=== PATIENT | female | born 1950 | race Caucasian/White ===

== ENCOUNTER 2021-04-13 06:44 | Inpatient (IN) | payer BC, OTHER ==
[2021-04-06 19:16] VITALS: BMI 32.5
[2021-04-13] MEDS ORDERED: ceFAZolin SODIUM 1 GM VIAL ONE ×2 (07:34→09:32)
[2021-04-13] MEDS ORDERED: VANCOMYCIN 1,000 MG VIAL (RESTRICTED TO ID ONLY) ONE ×2 (07:35→10:59)
[2021-04-13] MEDS ORDERED: THROMBIN (BOVINE) 5,000 UNIT VIAL TP ONE (07:36)
[2021-04-13] MEDS ORDERED: CELECOXIB 200 MG CAPSULE PO ONE (08:00)
[2021-04-13] MEDS ORDERED: CEFAZOLIN 2 GM in DEXTROSE 5%-WATER - 50 ML IVPB ONE (08:00)
[2021-04-13] MEDS ORDERED: TRANEXAMIC ACID 1000 MG/10 ML VIAL IVPUSH ONE (08:00)
[2021-04-13] MEDS ORDERED: MIDAZOLAM HCL 2 MG/2 ML SINGLE DOSE VIAL ONE ×3 (08:39→10:57)
[2021-04-13] MEDS ORDERED: BUPIVACAINE LIPOSOME/PF (EXPAREL) 266 MG/20 ML VIAL ONE (08:39)
[2021-04-13] MEDS ORDERED: SODIUM CHLORIDE 0.9% P/F 10 ML VIAL IJ ONE (08:39)
[2021-04-13] MEDS ORDERED: BUPIVACAINE HCL 50 ML ONE ×2 (08:39→08:47)
[2021-04-13] MEDS ORDERED: ONDANSETRON 4 MG/2 ML VIAL IVPUSH PRN (09:31)
[2021-04-13] MEDS ORDERED: MAGNESIUM HYDROX 2400MG/30ML ORAL SUSPENSION 30 ML CUP PO PRN (09:31)
[2021-04-13] MEDS ORDERED: MAG HYDROX/AL HYDROX/SIMETH 30 ML UNIT-DOSE CUP PO PRN (09:31)
[2021-04-13] MEDS ORDERED: TRANEXAMIC ACID 1000 MG/10 ML VIAL ONE ×2 (09:32→10:50)
[2021-04-13] MEDS ORDERED: DEXAMETHASONE SOD PHOSPHATE 4 MG/1 ML VIAL ONE (09:32)
[2021-04-13] MEDS ORDERED: LACTATED RINGERS SOLUTION 1,000 ML IV SCH (09:45)
[2021-04-13] MEDS ORDERED: PROPOFOL 20 ML ONE ×2 (09:46)
[2021-04-13] MEDS ORDERED: SUCCINYLCHOLINE CHLORIDE 200 MG/10 ML SYRINGE ONE (09:47)
[2021-04-13] MEDS ORDERED: PHENYLEPHRINE HCL 10 MG/1 ML SINGLE DOSE VIAL ONE (10:58)
[2021-04-13] MEDS: ACETAMINOPHEN 325 MG TABLET (FP) PO SCH ×2 (12:05→18:33)
[2021-04-13] MEDS ORDERED: ACETAMINOPHEN 325 MG TABLET (FP) ONE (12:12)
[2021-04-13] MEDS: QUINAPRIL HCL 20 MG TABLET PO SCH (12:48)
[2021-04-13] MEDS: FOLIC ACID 1 MG TABLET (FP) PO SCH (12:48)
[2021-04-13] MEDS: HYDROCHLOROTHIAZIDE 12.5 MG CAPSULE (FP) PO SCH (12:49)
[2021-04-13] MEDS: SENNOSIDES/DOCUSATE COMBO (SENNA PLUS) TABLET (UD) PO SCH ×2 (12:49→21:13)
[2021-04-13] MEDS: MULTIVITAMINS (DAILY MVI) TABLET (FP) PO SCH (12:49)
[2021-04-13] MEDS: PANTOPRAZOLE 40 MG TABLET PO SCH (12:49)
[2021-04-13] MEDS: oxyCODONE HCL 5 MG TABLET PO PRN ×2 (16:44→21:14)
[2021-04-13] MEDS: CEFAZOLIN 2 GM/D5W 2 GM/50 ML ML IVPB SCH (18:33)
[2021-04-13] MEDS: oxyCODONE HCL 10 MG SUSTAINED ACTING TABLET PO SCH (21:13)
[2021-04-14] MEDS: CEFAZOLIN 2 GM/D5W 2 GM/50 ML ML IVPB SCH (02:40)
[2021-04-14] MEDS: oxyCODONE HCL 5 MG TABLET PO PRN ×3 (04:00→19:56)
[2021-04-14] MEDS: ACETAMINOPHEN 325 MG TABLET (FP) PO SCH ×4 (06:01→17:29)
[2021-04-14 07:57] LABS: HEMATOCRIT 37.9 % (32.4-45.2); HEMOGLOBIN 12.6 GM/dl (10.7-15.3); MCH 30.5 pg (25.7-33.7); MCHC 33.4 g/dl (32.0-36.0); MEAN CELL VOLUME 91.4 fl (80-96); MEAN PLT VOLUME 8.6 fl (7.5-11.1); PLATELET COUNT 280 10^3/uL (134-434); RBC 4.14 M/mm3 (3.60-5.2); RDW 12.3 % (11.6-15.6); WHITE BLOOD COUNT 11.4 K/mm3 (4.0-10.8)
[2021-04-14] MEDS: ASPIRIN 325 MG TABLET PO SCH (08:11)
[2021-04-14] MEDS: SENNOSIDES/DOCUSATE COMBO (SENNA PLUS) TABLET (UD) PO SCH ×2 (09:19→21:43)
[2021-04-14] MEDS: HYDROCHLOROTHIAZIDE 12.5 MG CAPSULE (FP) PO SCH ×2 (09:20→12:15)
[2021-04-14] MEDS: PANTOPRAZOLE 40 MG TABLET PO SCH (09:20)
[2021-04-14] MEDS: MULTIVITAMINS (DAILY MVI) TABLET (FP) PO SCH (09:20)
[2021-04-14] MEDS: FOLIC ACID 1 MG TABLET (FP) PO SCH (09:20)
[2021-04-14] MEDS: QUINAPRIL HCL 20 MG TABLET PO SCH ×2 (09:20→12:14)
[2021-04-14] MEDS: oxyCODONE HCL 10 MG SUSTAINED ACTING TABLET PO SCH ×2 (11:01→21:41)
[2021-04-15] MEDS: oxyCODONE HCL 5 MG TABLET PO PRN (00:03)
[2021-04-15] MEDS: ACETAMINOPHEN 325 MG TABLET (FP) PO SCH ×2 (00:04→05:04)
[2021-04-15 08:30] LABS: HEMATOCRIT 37.8 % (32.4-45.2); HEMOGLOBIN 12.7 GM/dl (10.7-15.3); MCHC 33.7 g/dl (32.0-36.0); MEAN CELL VOLUME 92.2 fl (80-96); PLATELET COUNT 282 10^3/uL (134-434); RBC 4.11 M/mm3 (3.60-5.2); RDW 12.6 % (11.6-15.6); WHITE BLOOD COUNT 14.4 K/mm3 (4.0-10.8)
[2021-04-15] MEDS: HYDROCHLOROTHIAZIDE 12.5 MG CAPSULE (FP) PO SCH (11:23)
[2021-04-15] MEDS: SENNOSIDES/DOCUSATE COMBO (SENNA PLUS) TABLET (UD) PO SCH (11:23)
[2021-04-15] MEDS: PANTOPRAZOLE 40 MG TABLET PO SCH (11:23)
[2021-04-15] MEDS: FOLIC ACID 1 MG TABLET (FP) PO SCH (11:23)
[2021-04-15] MEDS: ASPIRIN 325 MG TABLET PO SCH (11:24)
[2021-04-15] MEDS: MULTIVITAMINS (DAILY MVI) TABLET (FP) PO SCH (11:24)
[2021-04-15] MEDS: oxyCODONE HCL 10 MG SUSTAINED ACTING TABLET PO SCH (11:24)
[2021-04-15 11:30] VITALS: BP 142/73; PULSE 95; TEMP 98.8
== END 2021-04-15 12:04 | disposition home health service (06) | DRG 470 ==
LOC: FM/S 06:44
PROVIDERS: ADMIT Orthopaedic Surgery; ATTEND Orthopaedic Surgery
PROC: 8E0Y0CZ Robotic Assisted Procedure of Lower Extremity, Open Approach (ICD-10-PCS; 2021-04-13)
PROC: 0SRD0J9 Replacement of Left Knee Joint with Synthetic Substitute, Cemented, Open Approach (ICD-10-PCS; principal; 2021-04-13 09:15)
DX: M17.12 Unilateral primary osteoarthritis, left knee (principal)
CPT/HCPCS: 36415; 73560-TC-LT-FY; 85027; 94760; 97010-GP; 97116-GP; 97162-GP

== ENCOUNTER 2021-06-11 18:55 | Inpatient (IN) | payer BC, OTHER ==
[2021-06-11] MEDS ORDERED: morphine CARPU-JECT 2 MG/1 ML DISP.SYRIN IVPUSH ONE (19:36)
[2021-06-11] MEDS ORDERED: SODIUM CHLORIDE 1,000 ML IV ONE ×2 (19:36→20:24)
[2021-06-11] MEDS ORDERED: ONDANSETRON 4 MG/2 ML VIAL IVPB ONE (19:36)
[2021-06-11] MEDS ORDERED: ONDANSETRON 4 MG/2 ML VIAL ONE (19:54)
[2021-06-11] MEDS ORDERED: morphine SULFATE 4 MG/ML VIAL ONE (19:54)
[2021-06-11 20:03] LABS: HEMATOCRIT 38.6 % (32.4-45.2); HEMOGLOBIN 13.3 GM/dl (10.7-15.3); MCH 30.8 pg (25.7-33.7); MCHC 34.4 g/dl (32.0-36.0); MEAN CELL VOLUME 89.5 fl (80-96); MEAN PLT VOLUME 8.2 fl (7.5-11.1); PLATELET COUNT 337 10^3/uL (134-434); RBC 4.32 M/mm3 (3.60-5.2); RDW 13.4 % (11.6-15.6); WHITE BLOOD COUNT 24.6 K/mm3 (4.0-10.8)
[2021-06-11 20:12] LABS: ALBUMIN 3.8 g/dl (3.4-5.0); ALK PHOS 102 U/L (45-117); ANION GAP 13 MMOL/L (8-16); BILIRUBIN,TOTAL 1.3 mg/dl (0.2-1); CALCIUM 9.3 mg/dl (8.5-10); CHLORIDE 102 mmol/L (98-107); CO2 22 mmol/L (21-32); CREATININE 1.6 mg/dl (0.55-1.3); GLUCOSE,RANDOM 152 mg/dl (74-106); SGOT/AST 12 U/L (15-37); SGPT/ALT 11 U/L (13-61); SODIUM 137 mmol/L (136-145); TOT PROT 6.7 g/dl (6.4-8.2)
[2021-06-11 20:44] LABS: PLATELET ESTIMATE ADEQUATE
[2021-06-11 21:06] LABS: LIPASE 108 U/L (73-393)
[2021-06-11] MEDS ORDERED: PIPERACILLIN/TAZOB 4.5 GM 4.5 GM in DEXTROSE 5%-WATER 100 ML IVPB ONE (21:49)
[2021-06-11] MEDS ORDERED: PIPERACILLIN/TAZOBACTAM 4.5 GM VIAL IVPB ONE (21:52)
[2021-06-11 23:27] LABS: EPITHELIAL CELLS FEW /hpf
[2021-06-11] MEDS ORDERED: ONDANSETRON 4 MG/2 ML VIAL IVPUSH PRN (23:32)
[2021-06-12] MEDS ORDERED: morphine SULFATE 4 MG/ML VIAL ONE (02:58)
[2021-06-12] MEDS: MORPHINE SULFATE 2 MG/ML VIAL IVPUSH PRN (03:42)
[2021-06-12] MEDS: PIPERACILLIN/TAZOB 4.5 GM 4.5 GM in DEXTROSE 5%-WATER 100 ML IVPB SCH ×5 (04:30→21:08)
[2021-06-12] MEDS ORDERED: PIPERACILLIN/TAZOBACTAM 4.5 GM VIAL IVPB ONE ×3 (04:40→20:59)
[2021-06-12] MEDS: DEXTROSE 5%-0.45% SALINE 1,000 ML IV SCH (06:00)
[2021-06-12 08:09] LABS: HEMATOCRIT 35.9 % (32.4-45.2); HEMOGLOBIN 11.8 GM/dl (10.7-15.3); MCH 29.5 pg (25.7-33.7); MEAN CELL VOLUME 89.4 fl (80-96); MEAN PLT VOLUME 8.7 fl (7.5-11.1); PLATELET COUNT 272 10^3/uL (134-434); RBC 4.01 M/mm3 (3.60-5.2); RDW 13.4 % (11.6-15.6)
[2021-06-12 08:16] LABS: ALBUMIN 3.3 g/dl (3.4-5.0); CALCIUM 8.9 mg/dl (8.5-10); CREATININE 1.6 mg/dl (0.55-1.3); TOT PROT 5.9 g/dl (6.4-8.2)
[2021-06-12] MEDS ORDERED: DEXTROSE 5%-WATER 100 ML IVPB ONE ×2 (11:51→20:59)
[2021-06-12] MEDS: HEPARIN NA (PORCINE) 5,000 UNITS/ML 1ML VIAL SQ SCH ×2 (12:03→21:08)
[2021-06-13] MEDS ORDERED: DEXTROSE 5%-WATER 100 ML IVPB ONE ×4 (01:55→21:44)
[2021-06-13] MEDS ORDERED: PIPERACILLIN/TAZOBACTAM 4.5 GM VIAL IVPB ONE ×4 (01:55→21:44)
[2021-06-13] MEDS: DEXTROSE 5%-0.45% SALINE 1,000 ML IV SCH ×2 (02:06→10:16)
[2021-06-13] MEDS: PIPERACILLIN/TAZOB 4.5 GM 4.5 GM in DEXTROSE 5%-WATER 100 ML IVPB SCH ×4 (02:07→21:59)
[2021-06-13] MEDS: HEPARIN NA (PORCINE) 5,000 UNITS/ML 1ML VIAL SQ SCH ×2 (10:18→21:59)
[2021-06-13] MEDS: FOLIC ACID 1 MG TABLET (FP) PO SCH (14:59)
[2021-06-13 17:07] LABS: BASO % 0.3 % (0-2.0); EOS % 1.5 % (0-4.5); HEMATOCRIT 32.5 % (32.4-45.2); HEMOGLOBIN 11.1 GM/dL (10.7-15.3); LYMPH % 6.4 % (8-40); MCH 30.4 pg (25.7-33.7); MCHC 34.1 g/dl (32.0-36.0); MEAN CELL VOLUME 88.9 fl (80-96); MEAN PLT VOLUME 8.3 fl (7.5-11.1); MONO % 5.5 % (3.8-10.2); NEUT % 86.3 % (42.8-82.8); PLATELET COUNT 276 10^3/uL (134-434); RBC 3.65 M/mm3 (3.60-5.2); RDW 14.6 % (11.6-15.6); WHITE BLOOD COUNT 10.2 K/mm3 (4.0-10.0)
[2021-06-13 17:37] LABS: CALCIUM 8.7 mg/dL (8.5-10.1)
[2021-06-13 17:38] LABS: ALBUMIN 2.8 g/dl (3.4-5.0); MAGNESIUM 1.8 mg/dL (1.8-2.4)
[2021-06-13 17:42] LABS: PHOSPHOROUS 2.8 mg/dL (2.5-4.9)
[2021-06-13 17:43] LABS: BILIRUBIN,TOTAL 0.6 mg/dL (0.2-1); TOT PROT 5.6 g/dl (6.4-8.2)
[2021-06-14] MEDS: DEXTROSE 5%-0.45% SALINE 1,000 ML IV SCH ×2 (00:40→13:19)
[2021-06-14] MEDS ORDERED: DEXTROSE 5%-WATER 100 ML IVPB ONE ×3 (02:41→14:38)
[2021-06-14] MEDS ORDERED: PIPERACILLIN/TAZOBACTAM 4.5 GM VIAL IVPB ONE ×3 (02:41→14:38)
[2021-06-14] MEDS: PIPERACILLIN/TAZOB 4.5 GM 4.5 GM in DEXTROSE 5%-WATER 100 ML IVPB SCH ×3 (02:45→15:00)
[2021-06-14] MEDS ORDERED: MAGNESIUM SULF 50% (8.12 MEQ/2 ML-1 GM VIAL) IVPB ONE (08:11)
[2021-06-14 09:11] LABS: BASO % 0.6 % (0-2.0); EOS % 2.4 % (0-4.5); HEMATOCRIT 31.6 % (32.4-45.2); HEMOGLOBIN 10.9 GM/dL (10.7-15.3); LYMPH % 7.7 % (8-40); MCH 30.5 pg (25.7-33.7); MCHC 34.6 g/dl (32.0-36.0); MEAN CELL VOLUME 88.2 fl (80-96); MEAN PLT VOLUME 8.1 fl (7.5-11.1); MONO % 6.9 % (3.8-10.2); NEUT % 82.4 % (42.8-82.8); PLATELET COUNT 307 10^3/uL (134-434); RBC 3.58 M/mm3 (3.60-5.2); RDW 14.1 % (11.6-15.6); WHITE BLOOD COUNT 8.3 K/mm3 (4.0-10.0)
[2021-06-14 09:35] LABS: ALBUMIN 2.8 g/dl (3.4-5.0); BLOOD UREA NITROGEN 10.2 mg/dL (7-18); CALCIUM 8.8 mg/dL (8.5-10.1); MAGNESIUM 1.8 mg/dL (1.8-2.4)
[2021-06-14 09:39] LABS: BILIRUBIN,TOTAL 0.6 mg/dL (0.2-1); PHOSPHOROUS 3.2 mg/dL (2.5-4.9)
[2021-06-14 09:40] LABS: TOT PROT 5.7 g/dl (6.4-8.2)
[2021-06-14] MEDS: FOLIC ACID 1 MG TABLET (FP) PO SCH ×2 (09:59→11:26)
[2021-06-14] MEDS: HEPARIN NA (PORCINE) 5,000 UNITS/ML 1ML VIAL SQ SCH ×2 (10:10→22:18)
[2021-06-14] MEDS: KCL 10 MEQ IVPB 10 MEQ/100 ML INFUS.BAG IVPB SCH ×3 (11:29→14:00)
[2021-06-14] MEDS ORDERED: DEXTROSE 5%-0.45% SALINE 1,000 ML with POTASSIUM CHLORIDE 20 MEQ IV SCH (13:56)
[2021-06-14] MEDS ORDERED: D5-1/2NS+20 MEQ KCL - 20 MEQ/1,000 ML INFUS.BAG IV SCH (14:00)
[2021-06-14] MEDS ORDERED: AMOX TR/POT CLAV 875MG/125MG TABLETS (FP) PO SCH (17:30)
[2021-06-14] MEDS ORDERED: DEXTROSE 5%-WATER - 50 ML IVPB ONE (18:34)
[2021-06-14] MEDS ORDERED: PIPERACILLIN/TAZOBACTAM 3.375 GM VIAL IVPB ONE (18:34)
[2021-06-14] MEDS: PIPERACILLIN/TAZOB 3.375 GM 3.375 GM in DEXTROSE 5%-WATER - 50 ML IVPB SCH (18:44)
[2021-06-15] MEDS ORDERED: PIPERACILLIN/TAZOBACTAM 3.375 GM VIAL IVPB ONE ×3 (01:17→17:29)
[2021-06-15] MEDS ORDERED: DEXTROSE 5%-WATER - 50 ML IVPB ONE ×3 (01:18→17:29)
[2021-06-15] MEDS: PIPERACILLIN/TAZOB 3.375 GM 3.375 GM in DEXTROSE 5%-WATER - 50 ML IVPB SCH ×3 (02:05→17:46)
[2021-06-15] MEDS: D5-1/2NS+20 MEQ KCL - 20 MEQ/1,000 ML INFUS.BAG IV SCH ×2 (07:03→17:27)
[2021-06-15 09:04] LABS: BASO % 0.8 % (0-2.0); EOS % 2.7 % (0-4.5); HEMATOCRIT 29.9 % (32.4-45.2); HEMOGLOBIN 10.3 GM/dL (10.7-15.3); LYMPH % 7.6 % (8-40); MCH 30.3 pg (25.7-33.7); MCHC 34.6 g/dl (32.0-36.0); MEAN CELL VOLUME 87.6 fl (80-96); MEAN PLT VOLUME 7.5 fl (7.5-11.1); MONO % 8.2 % (3.8-10.2); NEUT % 80.7 % (42.8-82.8); PLATELET COUNT 279 10^3/uL (134-434); RBC 3.41 M/mm3 (3.60-5.2); RDW 13.7 % (11.6-15.6); WHITE BLOOD COUNT 6.4 K/mm3 (4.0-10.0)
[2021-06-15 09:30] LABS: ALBUMIN 2.7 g/dl (3.4-5.0); CALCIUM 8.7 mg/dL (8.5-10.1)
[2021-06-15 09:31] LABS: BLOOD UREA NITROGEN 6.8 mg/dL (7-18); MAGNESIUM 1.9 mg/dL (1.8-2.4)
[2021-06-15 09:34] LABS: CREATININE 0.9 mg/dL (0.55-1.3); PHOSPHOROUS 3.1 mg/dL (2.5-4.9)
[2021-06-15 09:35] LABS: BILIRUBIN,TOTAL 0.5 mg/dL (0.2-1); TOT PROT 5.5 g/dl (6.4-8.2)
[2021-06-15] MEDS: HEPARIN NA (PORCINE) 5,000 UNITS/ML 1ML VIAL SQ SCH ×2 (09:50→21:41)
[2021-06-15] MEDS: FOLIC ACID 1 MG TABLET (FP) PO SCH (09:50)
[2021-06-15] MEDS ORDERED: POTASSIUM CHLORIDE TABS 20 MEQ TABLET.ER (FP) PO ONE (12:45)
[2021-06-15] MEDS: LACTOBACILLUS ACIDOPHILUS 1 TABLET PO SCH (17:46)
[2021-06-15] MEDS: MORPHINE SULFATE 2 MG/ML VIAL IVPUSH PRN (21:30)
[2021-06-16] MEDS ORDERED: PIPERACILLIN/TAZOBACTAM 3.375 GM VIAL IVPB ONE ×3 (00:45→17:22)
[2021-06-16] MEDS ORDERED: DEXTROSE 5%-WATER - 50 ML IVPB ONE ×3 (00:45→17:22)
[2021-06-16] MEDS: PIPERACILLIN/TAZOB 3.375 GM 3.375 GM in DEXTROSE 5%-WATER - 50 ML IVPB SCH ×3 (01:23→17:50)
[2021-06-16 08:53] LABS: BASO % 0.7 % (0-2.0); EOS % 1.9 % (0-4.5); HEMATOCRIT 32.1 % (32.4-45.2); HEMOGLOBIN 10.8 GM/dL (10.7-15.3); LYMPH % 8.1 % (8-40); MCH 29.7 pg (25.7-33.7); MCHC 33.6 g/dl (32.0-36.0); MEAN CELL VOLUME 88.5 fl (80-96); MEAN PLT VOLUME 7.5 fl (7.5-11.1); MONO % 8.3 % (3.8-10.2); PLATELET COUNT 319 10^3/uL (134-434); RBC 3.62 M/mm3 (3.60-5.2); RDW 14.3 % (11.6-15.6)
[2021-06-16 09:18] LABS: BLOOD UREA NITROGEN 6.7 mg/dL (7-18); MAGNESIUM 1.6 mg/dL (1.8-2.4)
[2021-06-16 09:22] LABS: PHOSPHOROUS 2.5 mg/dL (2.5-4.9)
[2021-06-16 09:23] LABS: BILIRUBIN,TOTAL 0.4 mg/dL (0.2-1); TOT PROT 6.1 g/dl (6.4-8.2)
[2021-06-16] MEDS: LACTOBACILLUS ACIDOPHILUS 1 TABLET PO SCH (09:51)
[2021-06-16] MEDS: HEPARIN NA (PORCINE) 5,000 UNITS/ML 1ML VIAL SQ SCH ×2 (09:51→21:31)
[2021-06-16] MEDS: FOLIC ACID 1 MG TABLET (FP) PO SCH (09:51)
[2021-06-16 13:22] LABS: PH,URINE 5.5 (5.0-8.0); URINE APPEARANCE CLOUDY; URINE BILIRUBIN NEGATIVE (NEGATIVE); URINE COLOR DK YELLOW; URINE GLUCOSE (UA) NEGATIVE (NEGATIVE); URINE KETONE TRACE (NEGATIVE); URINE LEUK ESTERASE NEGATIVE (NEGATIVE); URINE NITRITE NEGATIVE (NEGATIVE); URINE PROTEIN TRACE (NEGATIVE); URINE UROBILINOGEN 0.2 mg/dL (0.2-1.0)
[2021-06-16] MEDS ORDERED: MAGNESIUM SULF 50% (8.12 MEQ/2 ML-1 GM VIAL) IVPB ONE (14:00)
[2021-06-16] MEDS: D5-1/2NS+20 MEQ KCL - 20 MEQ/1,000 ML INFUS.BAG IV SCH ×2 (16:57→17:51)
[2021-06-17] MEDS ORDERED: DEXTROSE 5%-WATER - 50 ML IVPB ONE ×2 (00:52→09:45)
[2021-06-17] MEDS ORDERED: PIPERACILLIN/TAZOBACTAM 3.375 GM VIAL IVPB ONE ×2 (00:52→09:45)
[2021-06-17] MEDS: PIPERACILLIN/TAZOB 3.375 GM 3.375 GM in DEXTROSE 5%-WATER - 50 ML IVPB SCH ×2 (01:07→09:50)
[2021-06-17 05:32] VITALS: PULSE 75; TEMP 98.2
[2021-06-17] MEDS: LACTOBACILLUS ACIDOPHILUS 1 TABLET PO SCH (09:50)
[2021-06-17] MEDS: FOLIC ACID 1 MG TABLET (FP) PO SCH (09:50)
[2021-06-17] MEDS: HEPARIN NA (PORCINE) 5,000 UNITS/ML 1ML VIAL SQ SCH (09:52)
[2021-06-17 11:30] LABS: BASO % 0.8 % (0-2.0); EOS % 2.8 % (0-4.5); HEMATOCRIT 29.9 % (32.4-45.2); LYMPH % 9.5 % (8-40); MCH 29.9 pg (25.7-33.7); MCHC 33.5 g/dl (32.0-36.0); MEAN CELL VOLUME 89.2 fl (80-96); MEAN PLT VOLUME 7.9 fl (7.5-11.1); MONO % 7.4 % (3.8-10.2); NEUT % 79.5 % (42.8-82.8); PLATELET COUNT 314 10^3/uL (134-434); RBC 3.36 M/mm3 (3.60-5.2); RDW 14.2 % (11.6-15.6); WHITE BLOOD COUNT 8.3 K/mm3 (4.0-10.0)
[2021-06-17 11:50] LABS: CALCIUM 8.7 mg/dL (8.5-10.1)
[2021-06-17 11:51] LABS: ALBUMIN 2.7 g/dl (3.4-5.0)
[2021-06-17 11:53] LABS: BLOOD UREA NITROGEN 5.1 mg/dL (7-18)
[2021-06-17 11:54] LABS: CREATININE 0.9 mg/dL (0.55-1.3); PHOSPHOROUS 2.8 mg/dL (2.5-4.9)
[2021-06-17 11:56] LABS: BILIRUBIN,TOTAL 0.3 mg/dL (0.2-1); TOT PROT 5.6 g/dl (6.4-8.2)
[2021-06-17 12:49] VITALS: BP 128/80
[2021-06-17 14:00] VITALS: BMI 32.9
== END 2021-06-17 16:08 | disposition home or self-care (01) | DRG 392 ==
LOC: FER 18:55 → J6S 23:30 → JERBED 06-12 10:47 → OBSVTOIN 06-12 10:47 → INTOOBSV 06-12 10:47 → UNDOADMIN 06-12 10:47 → J6S 06-12 11:06 → JERBED 06-12 11:06
PROVIDERS: ADMIT Internal Medicine; ATTEND Internal Medicine
DX: K57.80 Diverticulitis of intestine, part unspecified, with perforation and abscess without bleeding (principal); N17.9 Acute kidney failure, unspecified; R19.7 Diarrhea, unspecified; I10 Essential (primary) hypertension; E66.9 Obesity, unspecified; Z68.32 Body mass index [BMI] 32.0-32.9, adult; M06.9 Rheumatoid arthritis, unspecified; D72.829 Elevated white blood cell count, unspecified; E87.6 Hypokalemia; K76.0 Fatty (change of) liver, not elsewhere classified
CPT/HCPCS: 36415; 71045-TC-FY; 74176-TC; 80053; 81003; 81015; 82550; 82570; 83605; 83690; 83735; 84100; 84156; 84484; 85025; 87040; 87086; 93005; 97116-GP; 97161-GP; 99285-25; C9803; J1644; U0003; U0005